=== PATIENT | female | born 1960 | race Caucasian/White ===

== ENCOUNTER 2016-10-14 06:45 | Day surgery (SDC) | payer OTHER ==
[~2016-10-14] VITALS: Ht 160 cm; Wt 75.5 kg
[~2016-10-14 06:45] MED LIST: IBUP800T25; TRAZADONE; [UNRECOGNIZED DRUG - OTHER]
[2016-10-14 07:50] VITALS: Ht 160 cm; Wt 75.5 kg
[2016-10-14] MEDS ORDERED: HYD25 PO (08:02)
[2016-10-14] MEDS ORDERED: TRAZ150T65 PO (08:02)
[2016-10-14] MEDS ORDERED: QUET200T27 PO (08:02)
[2016-10-14] MEDS ORDERED: GABA-528 PO (08:02)
[2016-10-14] MEDS ORDERED: MONT10TA24 PO (08:02)
[2016-10-14] MEDS ORDERED: MAGNESIUM PO (08:02)
[2016-10-14] MEDS ORDERED: ZIPR80CA22 PO (08:02)
[2016-10-14] MEDS ORDERED: LISI10TA2 PO (08:02)
[2016-10-14] MEDS ORDERED: PROPOFOL 40 ML ONE (08:11)
[2016-10-14] MEDS ORDERED: FENTAnyl 50 MCG/ML VIAL ONE (08:11)
[2016-10-14] MEDS ORDERED: MIDAZOLAM 1 MG/ML 2 ML INJ ONE (08:11)
[2016-10-14 08:16] VITALS: BP 136/66; PULSE 65; RESP 20
[2016-10-14 09:17] VITALS: BP 109/62; RESP 20
--- NOTE | 2016-10-14 09:32 | GILP ---
DATE OF PROCEDURE: PROCEDURE: EGD with biopsy and colonoscopy. INDICATION: A 56-year-old female undergoing this procedure for surveillance of varicose veins (is p ositive for hepatitis C) and colonoscopy for colon cancer screening. The risks of the procedure, re lated and unrelated complications, anesthetic risks, alternatives discussed and informed consent was obtained. DESCRIPTION OF PROCEDURE: Patient was brought to the GI lab, sedated by the anesthesiologist. Afte r obtaining sedation, scope was passed with much ease into esophagus. No varicose vein identified. Z-line was regular at mucosa at 39 cm. Stomach mucosa revealed congestive gastropathy in the loly l area and gastritis in the antrum and distal part of the body of the stomach. Biopsies taken from the antrum and distal part of the body of the stomach to rule out H. pylori infection. Duodenum, fi rst and second part was within normal limits. Retroversion also was normal. Scope was straightened out and removed with good patient tolerance. IMPRESSION: 1. Gastritis. 2. Congestive gastropathy. 3. Normal esophagus. 4. No varicose vein identified. 5. Normal Z-line at 39 cm. 6. The patient had a 2 cm hiatal hernia. PLAN: Proceed with treatment for hepatitis C. COLONOSCOPY: The patient was turned around, scope was passed with much ease into rectum after a dig ital examination. Digital examination was normal. Scope was advanced all the way into the cecum. Appendiceal orifice and IC valve identified. Clarity and cleanliness were good. Rest of the colon appeared normal. The colon was thoroughly inspected while coming out. Retroversion done in the col on. Small hemorrhoids identified. IMPRESSION: 1. Normal findings all the way into cecum. 2. Small hemorrhoids. 3. Clarity and cleanliness were good. PLAN: Stay on high fiber diet. Next colonoscopy after 10 years. Dictated By: IAN FULTON/DOMO Conf#: [id number] DID#: [id number]
== END 2016-10-14 10:34 | disposition home or self-care (01) ==
LOC: GIL 06:45
PROVIDERS: ATTEND Internal Medicine Gastroenterology
DX: Z12.11 Encounter for screening for malignant neoplasm of colon (principal); K29.50 Unspecified chronic gastritis without bleeding; K29.70 Gastritis, unspecified, without bleeding; K31.9 Disease of stomach and duodenum, unspecified; K44.9 Diaphragmatic hernia without obstruction or gangrene; I10 Essential (primary) hypertension
CPT/HCPCS: 43239; 45378; 88305; 88312; J2250; J3010; Z7610